=== PATIENT | female | born 1955 | race African-American/Black ===

== ENCOUNTER 2017-11-17 18:06 | Emergency (ER) | payer OTHER ==
[~2017-11-17] VITALS: Ht 149.9 cm; Wt 47.6 kg
[2017-11-17 18:10] VITALS: BP 136/97
[2017-11-17] MEDS ORDERED: PENICILLIN V P500 MG PO (18:19)
[2017-11-17] MEDS ORDERED: NORCO 5-325 TA1 EACH PO (18:19)
== END 2017-11-17 18:40 | disposition home or self-care (01) ==
LOC: ER 18:06
DX: K08.89 Other specified disorders of teeth and supporting structures (principal)

== ENCOUNTER 2018-12-19 19:37 | Emergency (ER) | payer OTHER ==
[~2018-12-19] VITALS: Ht 149.9 cm; Wt 44.5 kg
[~2018-12-19 19:37] MED LIST: NORCO 5-325 TA1 EACH PO; PENICILLIN V P500 MG PO
[2018-12-19] MEDS ORDERED: TOPROL XL25 MG PO (19:41)
[2018-12-19] MEDS ORDERED: HYDRALAZINE 2525 MG PO (19:41)
[2018-12-19] MEDS ORDERED: NORVASC5 M1 PO (19:42)
[2018-12-19] MEDS ORDERED: VITAMIN B COMP1 EACH PO (19:43)
[2018-12-19] MEDS ORDERED: LOPRESSOR25 PO (20:37)
[2018-12-19 20:54] LABS: ABSOLUTE NEUTROPHILS 4.9 thou/uL (1.4-8.2); BASOPHILS 0.3 % (0.0-2.0); EOSINOPHILS 0.5 % (0.0-3.0); HEMATOCRIT 27.9 % (37.0-47.0); HEMOGLOBIN 9.3 gm/dL (12.0-15.0); LYMPHOCYTES 21.3 % (24.0-44.0); MCH 34.6 pg (26.0-34.0); MCHC 33.4 g/dL (28.0-37.0); MCV 103.8 fL (80.0-100.0); PLATELET COUNT 397 thou/uL (150-400); POLYS 67.9 % (36.0-66.0); RBC 2.69 mil/uL (4.20-5.00); RDW 12.8 % (10.5-14.5); WBC 7.2 thou/uL (4.0-11.0)
[2018-12-19 21:05] LABS: ANION GAP 16 mmol/L (7-16); BUN 54 mg/dL (7-18); CALCIUM 8.2 mg/dL (8.5-10.1); CHLORIDE 90 mmol/L (98-107); CO2 16 mmol/L (21-32); CREATININE 4.1 mg/dL (0.6-1.0); GLUCOSE 133 mg/dL (74-106); POTASSIUM 4.2 mmol/L (3.5-5.1); SODIUM 122 mmol/L (136-145)
[2018-12-19 21:12] LABS: ALBUMIN 3.4 g/dL (3.4-5.0); MAGNESIUM 1.7 mg/dL (1.8-2.4); SGOT 22 U/L (15-37); SGPT 21 U/L (30-65); TOTAL BILIRUBIN < 0.1 mg/dL (<0.1-1.0); TROPONIN-I <0.06 ng/mL (<0.06)
[2018-12-19 21:57] LABS: URINE BILIRUBIN NEGATIVE (Negative); URINE BLOOD TRACE (Negative); URINE CLARITY CLEAR; URINE COLOR YELLOW; URINE GLUCOSE-RANDOM* NEGATIVE (Negative); URINE KETONES NEGATIVE (Negative); URINE LEUKOCYTES-REFLEX NEGATIVE (Negative); URINE NITRITE-REFLEX NEGATIVE (Negative); URINE PROTEIN (DIPSTICK) 1+ (Negative); URINE SPECIFIC GRAVITY <= 1.005 (1.005-1.035); URINE UROBILINOGEN 0.2 E.U./dl (0.2-1.0)
[2018-12-19 22:30] LABS: BACTERIA-REFLEX None Seen /HPF (None Seen); CASTS None Seen /LPF (None Seen); CRYSTALS None Seen /LPF (None Seen); MUCUS None Seen strn/LPF (None Seen); SQUAMOUS 0-3 Few /LPF (0-3); URINE RBC None Seen /HPF (0-2); URINE WBC-REFLEX None Seen /HPF (0-5)
[2018-12-19 22:55] VITALS: BP 160/76
--- NOTE | 2018-12-22 07:55 | EKG ---
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: : 1955 Requested By: Carlos Jimenez Order Number: [id number] MD: Contreras Lino Measurements Intervals [place] Rate: 78 P: -25 [place]: 127 QRS: 36 QRSD: 86 T: -8 QT: 376 QTc: 429 Interpretive Statements Sinus rhythm Nonspecific T wave abnormality No previous ECG available for comparison Electronically Signed On 12-22-2018 7:55:28 CDT by Contreras Lino [email or web address] ��������������������������������������������� <ELECTRONICALLY SIGNED> ���������������������������������������� By: Contreras Lino MD, [facility] ��������������������������������������������� 12/22/18 0755 [id number] 07 Contreras Lino MD, FACC /EPI
== END 2018-12-19 22:55 | disposition home or self-care (01) ==
LOC: ER 19:37
PROVIDERS: Emergency Medicine
DX: R42 Dizziness and giddiness (principal); F17.210 Nicotine dependence, cigarettes, uncomplicated; I10 Essential (primary) hypertension